=== PATIENT | female | born 1950 | race Caucasian/White ===

== ENCOUNTER → 2020-09-20 07:49 | Outpatient (CLI) | payer MEDICARE, OTHER, SELFPAY ==
--- NOTE | 2020-09-20 07:53 | US_ITS ---
STUDY: ULTRASOUND OF THE FEMALE PELVIS - COMPLETE REASON FOR EXAM: Female, 70 years old. Endo hyperplasia LMP: Postmenopausal. TECHNIQUE: Transabdominal and Transvaginal TECHNICAL QUALITY: Adequate. COMPARISON: None. FINDINGS: The uterus is anteverted and is tilted to the left side of the pelvis. The uterus is enlarged and measures 10.3 cm x 6.4 cm x 6.1 cm. Normal uterine cervix. The endometrium is thickened and measures 33 mm in thickness, and is heterogeneous (striated) and fluid distended with cystic changes.. There is no demonstrated endometrial mass. There is a 5.1 cm x 4.1 cm x 3.7 cm fibroid arising from the right side of the body of the uterus. I.U.D. - The patient does not have an I.U.D. The right ovary is non-visualized. The left ovary is non-visualized. There is no fluid in the cul-de-sac. The pre void volume of the bladder was 144.2 ml. US/Transvaginal Non- IMPRESSION: Enlarged fibroid uterus. Heterogeneous thickening of the endometrium with fluid and cystic changes. Electronically Signed: Roman Briones MD at 12:47 EST , Service support ,
--- NOTE | 2020-09-20 07:53 | US_ITS ---
STUDY: ULTRASOUND OF THE FEMALE PELVIS - COMPLETE REASON FOR EXAM: Female, 70 years old. Endo hyperplasia LMP: Postmenopausal. TECHNIQUE: Transabdominal and Transvaginal TECHNICAL QUALITY: Adequate. COMPARISON: None. FINDINGS: The uterus is anteverted and is tilted to the left side of the pelvis. The uterus is enlarged and measures 10.3 cm x 6.4 cm x 6.1 cm. Normal uterine cervix. The endometrium is thickened and measures 33 mm in thickness, and is heterogeneous (striated) and fluid distended with cystic changes.. There is no demonstrated endometrial mass. There is a 5.1 cm x 4.1 cm x 3.7 cm fibroid arising from the right side of the body of the uterus. I.U.D. - The patient does not have an I.U.D. The right ovary is non-visualized. The left ovary is non-visualized. There is no fluid in the cul-de-sac. The pre void volume of the bladder was 144.2 ml. US/Pelvic (Non ) IMPRESSION: Enlarged fibroid uterus. Heterogeneous thickening of the endometrium with fluid and cystic changes. Electronically Signed: Roman Briones MD at 12:47 EST , Service support ,
== END ==
PROVIDERS: PCP Internal Medicine Infectious Disease; Referring Provider Urology; Visit Provider Urology
DX: N85.00 Endometrial hyperplasia, unspecified (principal)
CPT/HCPCS: 76830; 76856

== ENCOUNTER 2020-10-04 05:55 | Day surgery (SDC) | payer MEDICARE, OTHER, SELFPAY ==
[2020-09-22 09:24] VITALS: BMI 39.3
--- NOTE | 2020-10-03 16:03 | PCM.HPOB.BLA ---
- Problem List (1) Postmenopausal bleeding Status: Acute History and Physical Date of Admission: 10/04/20 Intake Vital Signs 09/22/20 Height 5 ft 5 in 09/22/20 Weight: 236 lb 8 oz 09/22/20 BP 130/82 H Intake Visit Reasons: referral us jayy on 09/20 Allergies azithromycin Allergy (Mild, Verified 09/22/20 09:26) unknown blue dye Allergy (Mild, Verified 09/22/20 09:26) throat swelling Penicillins Allergy (Mild, Verified 09/22/20 09:26) unknown Sulfa (Sulfonamide Antibiotics) Allergy (Mild, Verified 09/22/20 09:26) unknown Medications fesoterodine 8 mg tablet,extended release 24 hr 8 mg PO DAILY 09/22/20 [History Confirmed 09/22/20] hydrochlorothiazide 25 mg tablet 25 mg PO DAILY 09/22/20 [History Confirmed 09/22/20] losartan 100 mg tablet 100 mg PO DAILY 09/22/20 [History Confirmed 09/22/20] potassium chloride 10 mEq capsule,extended release 10 meq PO DAILY 09/22/20 [History Confirmed 09/22/20] pravastatin 40 mg tablet 40 mg PO DAILY 09/22/20 [History Confirmed 09/22/20] Is last menstrual period known: No Post menopausal: Yes Patient : No : No PFSH Medical History Urinary incontinence (Acute) Hypokalemia (Acute) Hyperlipidemia (Chronic) Hypertension (Chronic) Family History (Updated 09/22/20 @ 09:29 by Teresa Blackwell) Father Diabetes Mother Breast cancer Social History (Updated 09/22/20 @ 13:[address] Katheryn Osborn MD) Smoking Status: Never smoker alcohol intake: never substance use type: does not use caffeine: No what type of physical activity do you participate in: none seatbelt use: always do you feel safe at home: Yes additional social history: Single HPI referral us jayy on 09/20: Details: MORRIS CARRANZA is a 70 year old who presents for referral from Dr. To. Saw her for urgency incontinence. Menopause age 60. Reports a few spots of bleeding after going through menopause. Was told by Dr. To that she has spots of blood in her urine. Denies any recent vaginal bleeding. Pregancy History 0 Elective abortions Hx Para Spontaneous abortions Hx # Term Pregnancies Ectopic pregnancies Hx # Pregnancies Multiple births # of living children ROS Const Constitutional: Reports system reviewed and no additional complaints, except as docu; denies chills or fever(s) Eyes Eyes: Reports system reviewed and no additional complaints, except as docu ENT ENT: Reports system reviewed and no additional complaints, except as docu Cardio Card: Reports system reviewed and no additional complaints, except as docu; denies chest pain, leg swelling or rapid, pounding, or irregular heartbeat Resp Resp: Reports system reviewed and no additional complaints, except as docu; denies dyspnea GI GI: Reports system reviewed and no additional complaints, except as docu; denies constipation, nausea or vomiting : Reports system reviewed and no additional complaints, except as docu; denies painful urination, pelvic pain, urinary frequency, urinary hesitancy, urinary urgency, vaginal discharge, vaginal odor or vaginal itching Musc Musc: Reports system reviewed and no additional complaints, except as docu Skin Skin/Breast: Reports system reviewed and no additional complaints, except as docu Neuro Neuro: Reports system reviewed and no additional complaints, except as docu Psych Psych: Reports system reviewed and no additional complaints, except as docu Endo Endo: Reports system reviewed and no additional complaints, except as docu Exam Const General: cooperative, healthy appearing, comfortable, well developed, well groomed Neck Neck: normal visual inspection, full ROM Resp Effort & Inspection: normal respiratory effort, able to speak in complete sentences, symmetric chest movement Cardio Rate: regular rate Skin General: no rashes or lesions noted, elasticity normal, turgor normal Lesions: no lesions Rashes: no rashes Neuro General: alert, awake, oriented x3 Cranial Nerves: CN's II-XI intact bilaterally, PERRL, EOM intact bilaterally Cognition: normal cognition Speech: speech normal Gait: normal gait Extrem General: normal to inspection, full ROM, no pedal edema Psych Appearance: grossly normal Mental Status: mental status grossly normal Mood: congruent mood Affect: normal affect Speech and Movement: speech and movement normal Attitude: cooperative Thought Process: normal Thought Content: normal Assessment & Plan 1. Endometrial thickening on ultrasound R93.89 Plan Patient with 33mm uterine lining with cystic changes Patient asymptomatic and has not had postmenopausal bleeding. Did have microscopic hematuria in Dr. To's office Discussed that with the degree of thickening of her lining, I feel that it is necessary to perform hysteroscopy, D&C to ensure that she does not have endometrial cancer or hyperplasia. The nature of the procedure was described to the patient. The risks, benefits, indications, and alternatives to the procedure were discussed with the patient including bleeding, infection, and damage to surrounding structures. Discussed that risks are very low with D&C. Discussed the possibility of perforation and that this could require laparotomy or laparoscopy. Discussed the possibility of damage to surrounding structures including uterus, tubes, ovaries, bowel, or bladder. Understands the risk of hospitalization or reoperation. Voices understanding and agrees to proceed. UPDATE- I have seen the patient and performed any clinically relevant updates to the history and physical exam. Katheryn Osborn MD
[2020-10-04 06:25] VITALS: BP 137/70; PULSE 72; RESP 18; TEMP 37.1; O2SAT 99; BMI 39.4
[2020-10-04] MEDS: Lactated Ringers 1,000 ML 100 ML IV (06:45)
[2020-10-04 07:04] LABS: Absolute Lymphocyte Count 1.72 X10^3/uL (0.83-4.51); Absolute Neutrophil Count 7.1 X10^3/uL (2.0-7.7); Basophil# 0.06 X10^3/uL; Basophil% 0.6 % (0-1); Eosinophil# 0.14 X10^3/uL; Eosinophils% 1.5 % (0-5); Hematocrit 43.9 % (37-47); Hemoglobin 14.2 g/dL (12.0-15.0); Lymphocyte # 1.72 X10^3/ul (4.0); Lymphocyte % 17.8 % (19-41); Mean Corp Hgb Conc 32.3 g/dL (32-36); Mean Corpuscular Hgb 28.4 pg (27.0-32.0); Mean Corpuscular Volume 87.8 fL (81-99); Mean Platelet Vol. 9.5 fl (6.2-12.0); Monocyte# 0.63 X10^3/uL; Monocyte% 6.5 % (0-10); NRBC Flagged by Analyzer 0 % (0-5); Neutrophil # 7.07 X10^3/uL (2.7-7.7); Neutrophil % 73.3 % (47-70); Platelet Count 330 K/mm3 (150-450); RBC Distribution Width CV 13.2 % (11.6-14.6); RBC Distribution Width SD 42.5 fl (35.1-43.9); White Blood Count 9.7 K/mm3 (4.4-11.0)
--- NOTE | 2020-10-04 07:15 | PCM.DC.D&C ---
Discharge Diet: No Restrictions Discharge Activity: Return to Normal Activity, May Shower, May Take a Tub Bath - in 2 weeks. Allergies/Adverse Reactions: Allergies azithromycin Allergy (Mild, Verified 10/04/20 06:21) unknown blue dye Allergy (Mild, Verified 10/04/20 06:21) throat swelling Penicillins Allergy (Mild, Verified 10/04/20 06:21) unknown Sulfa (Sulfonamide Antibiotics) Allergy (Mild, Verified 10/04/20 06:21) unknown Medications to take at Discharge fesoterodine 8 mg tablet,extended release 24 hr 8 mg PO DAILY 09/22/20 hydrochlorothiazide 25 mg tablet 25 mg PO DAILY 09/22/20 losartan 100 mg tablet 100 mg PO DAILY 09/22/20 potassium chloride 10 mEq capsule,extended release 10 meq PO DAILY 09/22/20 pravastatin 40 mg tablet 40 mg PO DAILY 09/22/20 Naproxen [Naprosyn] 250 - 500 mg PO Q8H PRN PRN #30 tab 10/04/20 The following prescriptions were given: Naproxen [Naprosyn] 250 - 500 mg PO Q8H PRN PRN #30 tab PRN Reason: MILD PAIN Transmission Status: Pending to [facility] Orders to be completed after discharge: Type & Screen - PAT ONLY Time Frame: 10/04/20, Facility: [facility], Location: Laboratory Primary Care Physician: Toshia Mayer MD [Primary Care Provider] - Test Results: Test results from this visit will be discussed in further detail at your follow-up appointment, if applicable.
--- NOTE | 2020-10-04 07:16 | PCM.OPRPT ---
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 She was prepped and draped in the dorsolithotomy position with yellowfin stirrups. Weighted speculum was placed in the posterior aspect of the vagina and the anterior lip of the cervix was grasped with a single-tooth tenaculum. Significant cervical stenosis was noted. A cruciate incision was then performed on the cervix using an 11 blade. The cervix was sequentially dilated to accommodate the hysteroscope. The hysteroscope was then introduced into the uterine cavity and the above findings were noted. The cervix was unable to be dilated enough to accommodate a symphion scope. A sharp curettage was performed and a small amount of tissue was obtained. Polyp forceps were used to remove a small polyp from the uterine cavity. During the last pass a curette, uterine perforation suspected, but this was noted to be at the level of the fundus and bleeding was minimal therefore the procedure was deemed complete. Hemostasis was noted. The procedure was deemed complete. All instruments were then removed from the vagina. The patient was again from anesthesia and taken to the recovery room in stable condition. - Complications None apparent - Admit VTE Documentation VTE Present on Admission: No VTE Mechan Device Prophylaxis: SCD's VTE Pharm Prophylaxis ordered?: No Multi Select Codes - Urinary/Genital Urinary/Genital CPT Codes: 93601 Hysteroscopy,EMC, Polypectomy
--- NOTE | 2020-10-04 07:30 | EMB_PTH ---
PATIENT: MORRIS CARRANZA LOC: [facility] [place] U#:[id number] AGE/SX: 70/F ROOM: RE10/04/[address]: Dr. Katheryn Osborn MD : 1950 BED: DIS: 10/04/2020 SPEC #: [id number] RECD: 10/04/20 08:31 STATUS: ROBERTA PATEL #: [id number] DEMARCUS: 10/04/20 07:[address]: Katheryn Osborn DEPT: SURGICAL PATHOLOGY RECD BY: Verna Massey ENTERED: 10/04/20 09:50 SP TYPE: ENDOM BX/C OTHR DR: Dr. Toshia Mayer MD Tissues: Endometrium, NOS Procedures: Surgery Specimen Level IV HEADER OPERATION: Hysteroscopy, D & C PRE-OP DIAGNOSIS: Postmenopausal bleeding TISSUE SUBMITTED: Endometrial curettings MICROSCOPIC DIAGNOSIS Endometrial curettings: Scant strips of benign endometrial epithelium, consistent with atrophic endometrium and blood. Fragments of myometrium. Fragments of benign ectocervical epithelium and benign endocervical mucosa. See comment. LAITH:jason 10/05/2020 COMMENT Clinical correlation and appropriate follow up are necessary. MICROSCOPIC DESCRIPTION Slides are reviewed. GROSS DESCRIPTION Received in fixative is one container labeled with the patient's name and designated endometrial curettings. The specimen consists of multiple fragments of hemorrhagic soft tissue that in aggregate measure 2.5 x 1.5 x 0.2 cm. The specimen is totally submitted in one cassette. / LAITH:jason 10/04/20 TC:4 CPT: 69810
[2020-10-04 08:15] VITALS: BP 137/70; BP 99/77; PULSE 70; RESP 16; TEMP 35.9; O2SAT 93
[2020-10-04 08:20] VITALS: BP 113/93; BP 137/70; PULSE 70; RESP 16; O2SAT 93
[2020-10-04 08:25] VITALS: BP 109/79; BP 137/70; PULSE 68; RESP 16; O2SAT 96
[2020-10-04 08:30] VITALS: BP 124/80; BP 137/70; PULSE 69; RESP 16; TEMP 36.1; O2SAT 94
[2020-10-04 10:23] VITALS: BP 134/70; BP 137/70; PULSE 81; RESP 16; TEMP 36.3; O2SAT 95
== END 2020-10-04 10:25 | disposition home or self-care (01) ==
LOC: SDC 05:55 → AC 05:56
PROVIDERS: PCP Internal Medicine Infectious Disease; Referring Provider Obstetrics & Gynecology; Visit Provider Obstetrics & Gynecology
PROC: 0UB98ZZ Excision of Uterus, Via Natural or Artificial Opening Endoscopic (ICD-10-PCS; CPT 58558; principal; 2020-10-04 07:15)
DX: N85.8 Other specified noninflammatory disorders of uterus (principal); N95.0 Postmenopausal bleeding; R93.89 Abnormal findings on diagnostic imaging of other specified body structures; I10 Essential (primary) hypertension; E78.5 Hyperlipidemia, unspecified; Z20.822 Contact with and (suspected) exposure to COVID-19; Z79.899 Other long term (current) drug therapy
CPT/HCPCS: 00952; 58558; 85025; 86850; 86900; 86901; 87426; 88305; C9803; J7120; J2405

== ENCOUNTER → 2020-10-20 | Outpatient (CLI) | payer MEDICARE, OTHER, SELFPAY ==
[2020-10-20 09:45] VITALS: BMI 39.4
== END | disposition home or self-care (01) ==
LOC: LABSPEC 12:01
PROVIDERS: PCP Internal Medicine Infectious Disease; Referring Provider Obstetrics & Gynecology; Visit Provider Obstetrics & Gynecology
DX: R32 Unspecified urinary incontinence (principal); R30.0 Dysuria
CPT/HCPCS: 87077; 87086; 87088; 87186